=== PATIENT | female | born 1995 | race Caucasian/White ===

== ENCOUNTER 2021-01-29 21:14 | Emergency (ER) | payer OTHER ==
[~2021-01-29] VITALS: Ht 167.6 cm; Wt 52.6 kg
[2021-01-29] MEDS ORDERED: ONDANSETRON ODT 4 MG TAB.RAPDIS SL ONE (21:45)
[2021-01-29] MEDS ORDERED: LORAZEPAM 0.5 MG TABLET PO ONE (21:45)
[2021-01-29] MEDS ORDERED: HYDROCODONE/APAP 5-325MG TABLET PO ONE (21:45)
[2021-01-29] MEDS ORDERED: ONDANSETRON ODT 4 MG TAB.RAPDIS ONE (21:48)
[2021-01-29] MEDS ORDERED: LORAZEPAM 0.5 MG TABLET ONE (21:49)
[2021-01-29] MEDS ORDERED: HYDROCODONE/APAP 5-325MG TABLET ONE (21:50)
--- NOTE | 2021-01-29 21:50 | NUR ---
Refused all meds, states that headache is now gone.
[2021-01-29 21:52] VITALS: BP 118/72
--- NOTE | 2021-01-29 21:52 | NUR ---
Patient discharged to home in stable condition. Written and verbal after care instructions given. Patient verbalizes understanding of instructions. Stressed follow up or return to ER for worsening s/s. Patient ambulates with steady gait, v/s stable, left with all personal belongings.
== END 2021-01-29 21:52 | disposition home or self-care (01) ==
LOC: ER 21:17
DX: R51.9 Headache, unspecified (principal); Z88.6 Allergy status to analgesic agent
CPT/HCPCS: A4663; Q0162